=== PATIENT | female | born 1940 | race Caucasian/White ===

== ENCOUNTER 2018-06-05 11:11 | Emergency (ER) | payer MEDICARE, SELFPAY ==
--- NOTE | 2018-06-05 11:17 | ED.GENADULT ---
HPI - General Adult General Chief complaint: Shortness of Breath/Dyspnea Stated complaint: states pneumonia Time Seen by Provider: 06/05/18 11:14 Source: patient Mode of arrival: ambulatory Limitations: no limitations History of Present Illness HPI narrative: 77-year-old female with a history of COPD on a baseline of 2 L of oxygen at home here for evaluation of approximately 1 week of a productive cough, states that she is coughing up brown sputum, states that she has become more short of breath with her daily activities. She has not increased her oxygen use at home. She denies any chest pain. No change in her lower extremity edema. She also states she had 1 episode of vomiting the night prior to arrival in the emergency department. States that she has had subjective fevers and chills. Has not tried anything at home for these. Related Data Home Medications Medication Instructions Recorded Confirmed ascorbic acid (vitamin C) 2 tab PO DAILY 06/05/18 06/05/18 [Ascorbic Acid with Herminia Hips] budesonide-formoterol [Symbicort] 2 puff INHALATION Q12H 06/05/18 06/05/18 cholecalciferol (vitamin D3) 5,000 unit PO DAILY 06/05/18 06/05/18 [Vitamin D3] digoxin 1 tab PO DAILY 06/05/18 06/05/18 fluticasone 1 spray INTRANASAL DIRECTED 06/05/18 06/05/18 furosemide 10 mg PO DAILY 06/05/18 06/05/18 ipratropium-albuterol [Combivent 1 puff INHALATION Q6H 06/05/18 06/05/18 Respimat] loratadine 10 mg PO DAILY PRN 06/05/18 06/05/18 magnesium 250 mg PO BID 06/05/18 06/05/18 metoprolol succinate 25 mg PO BID 06/05/18 06/05/18 warfarin 1 mg PO SUTUTHSA 06/05/18 06/05/18 warfarin 1.5 mg PO MOWEFR 06/05/18 06/05/18 Previous Rx's Medication Instructions Recorded levofloxacin 750 mg PO DAILY 4 Days #4 tab 06/05/18 prednisone 40 mg PO DAILY 5 Days #10 tab 06/05/18 Allergies Allergy/AdvReac Type Severity Reaction Status Date / Time No Known Drug Allergies Allergy Verified 06/05/18 11:54 Review of Systems Constitutional Reports body ache(s), Reports chills, Reports fatigue and Reports fever(s) ENT Ears, Nose, Mouth, and Throat: Denies vertigo Cardiovascular Denies chest pain, Denies syncope, Denies palpitations and Reports dyspnea Respiratory Reports change in phlegm color, Reports chest congestion, Reports cough, Reports excessive phlegm production and Reports dyspnea Gastrointestinal Gastrointestinal: Denies abdominal pain, Reports diarrhea, Reports nausea and Reports vomiting Genitourinary Denies dysuria Musculoskeletal Denies myalgias and Denies arthralgias Integumentary/Breasts Denies lesions and Denies rash Neurologic Denies vertigo and Denies syncope Endocrine Reports fatigue and Denies palpitations Hematologic/Lymphatic Denies easy bleeding and Denies easy bruising PFSH Medical History COPD (chronic obstructive pulmonary disease) (Acute) Social History Smoking Status: Never smoker Comment: I reviewed the patient's medical history, surgical history, family history, social history Exam Initial Vital Signs Initial Vital Signs: Vital Signs Temperature 98.4 F 06/05/18 11:25 Pulse Rate 89 06/05/18 11:25 Respiratory Rate 26 H 06/05/18 11:25 Blood Pressure 96/57 L 06/05/18 11:25 Pulse Oximetry 94 06/05/18 11:25 Const General: cooperative, well developed, well groomed and No acute distress Orientation: alert and oriented x3 HENMT Head: normal to inspection, normocephalic and atraumatic Resp Effort & Inspection: normal respiratory effort and able to speak in complete sentences Other: Patient on 2 L of oxygen by nasal cannula which is at baseline for her Has bilateral coarse breath sounds Patient coughing up brown mucus here in the emergency department No retractions, no nasal flaring, no wheezing Cardio Rate: regular rate Rhythm: regular rhythm Heart Sounds: murmur systolic Pulses: radial pulses present GI Inspection: non-distended Palpation: soft, No firm and No tender Skin Lesions: no lesions Rashes: no rashes Neuro General: alert, awake and oriented x3 Cognition: normal cognition Speech: speech normal Psych Appearance: grossly normal and well kempt Course Orders Ordered: Discontinued Medications Levofloxacin (Levaquin) 750 mg PO NOW ONE Stop: 06/05/18 12:00 Last Admin: 07/26/18 12:22 Dose: 750 mg Prednisone (Deltasone) 40 mg PO NOW ONE Stop: 06/05/18 12:00 Last Admin: 06/05/18 12:22 Dose: 40 mg Vital Signs - 8 hr 06/05/18 11:25 06/05/18 11:34 06/05/18 12:05 Temperature 98.4 F Pulse Rate 89 67 88 Respiratory Rate 26 H 18 23 Blood Pressure 96/57 L Blood Pressure [Right Arm] 119/91 H 109/41 L Pulse Oximetry 94 97 96 Medical Decision Making MDM Narrative Medical decision making narrative: Patient with a history of COPD at her baseline respiratory status and baseline oxygen use. With the change in sputum production and her increased shortness of breath with exertion and her subjective fevers will treat with antibiotics for COPD exacerbation. She was given 1st dose of antibiotics and steroids here in the emergency department. Was sent home with a prescription for these. I feel that an inpatient stay is not warranted today. I feel that other etiologies such as cardiac and her unlikely given her history and clinical presentation. Patient is not clinically in heart failure. She was given return precautions. She expressed understanding and agreement with plan. Family was at bedside for this discussions and agrees. Imaging Data Chest x-ray: Radiologist's impression: PROCEDURE: XR CHEST 2V INDICATIONS: cough and fever concern for pneumonia TECHNIQUE: 2 views of the chest were acquired. COMPARISON: [facility], CT, THORAX WITHOUT CONTRAST, 01/08/2018, 11:13. [facility], CT, THORAX WITHOUT CONTRAST, 07/29/2017, 16:24. FINDINGS: Surgical changes and devices: None. Lungs and pleura: Emphysematous changes are present. There is increased pulmonary vascularity. Trace effusions. Mediastinum: Mediastinal contours are normal. Heart size is enlarged. Bones and chest wall: No suspicious bony abnormalities. Soft tissues appear unremarkable. IMPRESSION: Cardiomegaly with edema. Dictated by: Ana White M.D. on 06/05/2018 at 11:55 Approved by: Ana White M.D. on 06/05/2018 at 12:00 Discharge Plan Departure Patient Disposition: Home, Self-Care Clinical Impression: Acute exacerbation of chronic obstructive pulmonary disease (COPD) Discharge Date/Time: 06/05/18 12:54 Interventions: ED Discharge Assessment Last Done: 06/05/18 12:53 Instructions: Chronic Obstructive Pulmonary Disease Activity Restrictions/Additional Instructions: continue all of your medications. Take the antibiotics and steroids that you were given today as directed. Call your primary care doctor for a follow-up. Continue to use your oxygen at home. return to the emergency department for any new symptoms, worsening problems breathing, chest pain, or any other concerning symptoms Prescriptions: New prednisone 20 mg tablet 40 mg PO DAILY 5 Days Qty: 10 RF: 0 levofloxacin 750 mg tablet 750 mg PO DAILY 4 Days Qty: 4 RF: 0 No Action digoxin 125 mcg tablet 1 tab PO DAILY RF: 0 furosemide 20 mg tablet 10 mg PO DAILY RF: 0 metoprolol succinate 25 mg tablet extended release 24 hr 25 mg PO BID RF: 0 warfarin 1 mg tablet 1 mg PO SUTUTHSA RF: 0 fluticasone 50 mcg/actuation spray,suspension 1 spray Intranasal DIRECTED RF: 0 budesonide-formoterol [Symbicort] 160-4.5 mcg/actuation HFA aerosol inhaler 2 puff Inhalation Q12H RF: 0 ascorbic acid (vitamin C) [Ascorbic Acid with Herminia Hips] 500 mg Tablet 2 tab PO DAILY RF: 0 magnesium 250 mg Tablet 250 mg PO BID RF: 0 loratadine 10 mg Tablet 10 mg PO DAILY PRN (Reason: Allergy Symptoms) RF: 0 cholecalciferol (vitamin D3) [Vitamin D3] 1,000 unit Capsule 5,000 unit PO DAILY RF: 0 ipratropium-albuterol [Combivent Respimat] 20-100 mcg/actuation Mist 1 puff Inhalation Q6H RF: 0 warfarin 1 mg Tablet 1.5 mg PO MOWEFR RF: 0
[2018-06-05 11:25] VITALS: BP 96/57; PULSE 89; RESP 26; TEMP 36.9; O2SAT 94
[2018-06-05 11:34] VITALS: BP 119/91; PULSE 67; RESP 18; O2SAT 97
[2018-06-05 12:05] VITALS: BP 109/41; PULSE 88; RESP 23; O2SAT 96
[2018-06-05] MEDS: predniSONE 20 MG TABLET 40 MG PO (12:22)
[2018-06-05] MEDS: levoFLOXacin 250 MG TABLET 750 MG PO (12:22)
[2018-06-05 12:53] VITALS: BP 98/67; PULSE 83; RESP 20; TEMP 37; O2SAT 98
== END 2018-06-05 12:54 | disposition home or self-care (01) ==
PROVIDERS: Emergency Provider Emergency Medicine; Family Provider Family Medicine; PCP Family Medicine
DX: J44.1 Chronic obstructive pulmonary disease with (acute) exacerbation (principal)
CPT/HCPCS: 71046; 93041; 99283; 99284